=== PATIENT | male | born 1965 | race Caucasian/White ===

== ENCOUNTER 2019-10-31 02:19 | Inpatient (IN) | payer MEDICARE, SELFPAY ==
[2019-10-31] VITALS (9 sets, daily range): BP systolic 116–155; BP diastolic 74–94; PULSE 70–93; RESP 17–22; TEMP 36.5–37.4; O2SAT 91–95; BMI 32.5
--- NOTE | 2019-10-31 02:25 | P.HP_ITS ---
Providers/Chief Complaint Primary Care Provider: Darryl Headley Chief Complaint: direct admit/ acute diverticulitits History of Present Illness Juanjose Barboza is a 54 year old male who carries history of precancerous polyp removal, prior episode diverticulitis, family history of colon cancer came in for worsening down pain. Patient is stating that his symptoms started about 3 to 4 days ago with abdominal pain, his abdominal pain was located in the left upper quadrant which radiated towards lower quadrant, he started experiencing emesis, he has had 7-8 episodes of emesis, he is endorsing subjective fevers, nausea, worsening abdominal pain made him go to the [facility]. Diagnostic at the facility revealed sepsis, CT abdomen revealed acute diverticulitis with microperforation, Dr. Abraham was called from the hospital who requested patient to be admitted to hospitalist service. On arrival to the ED patient was hypertensive, afebrile, cold and diaphoretic which he is attributing to fentanyl which was given in the ambulance. I have requested ER nurse to check blood sugar, POC, blood work and notes reviewed from the other facility which are consistent with sepsis due to acute diverticulitis, mild leukocytosis, tachycardia, met sepsis criteria Ciprofloxacin Flagyl has been given at the outside facility, fluid resuscitation Patient is denying recent use of antibiotics, blood in stool, cough, chest pain, palpitation, recent sick contacts. His last meal was on Saturday. Review of Systems Const: Reports: chills, body aches, fatigue and diaphoresis; Denies: fever(s) Eyes: Denies: change in vision ENMT: Denies: throat pain Card: Denies: chest pain Resp: Denies: dyspnea GI: Reports: abdominal pain, nausea, vomiting and constipation : Denies: flank pain Musc: Denies: neck pain Skin/Breast: Denies: rash Neuro: Denies: headache(s) Psych: Denies: anxiety Endo: Denies: polyuria Mingo/Lymph: Denies: easy bruising All/Imm: Denies: urticaria Medications/Allergies Home Medications Medication Instructions Recorded Confirmed Last Taken Type amlodipine 10 mg tablet 10 mg PO ONCE 03/06/19 03/06/19 Unknown History metoprolol succinate 50 mg 50 mg PO DAILY #30 tab 10/14/19 10/14/19 Unknown Rx tablet,extended release 24 hr tizanidine 2 mg tablet 4 mg PO Q8H PRN #60 tab 10/14/19 10/14/19 Unknown Rx Allergies Allergy/AdvReac Type Severity Reaction Status Date / Time Penicillins Allergy Deathly Verified 10/14/19 13:34 Sick potassium Allergy Shock Verified 10/14/19 13:34 tramadol Allergy itching Verified 10/14/19 13:34 PFSH Acute PFSH: Medical History Abnormal colonoscopy Constipation Encounter for colonoscopy following colon polyp removal Precancerous 7 polyp removal GERD (gastroesophageal reflux disease) H/O coronary angiogram Hiatal hernia HTN (hypertension) Nephrolithiasis Osteoarthritis Pulmonary embolism Provoked PE after hospitalization for lithotripsy Surgical History H/O esophagogastroduodenoscopy H/O lithotripsy History of lithotripsy Family History Father Cancer Colon cancer in his father paternal aunt, paternal aunt, mother and brother are healthy Social History Smoking and tobacco status: heavy tobacco smoker smokeless tobacco Smokeless tobacco user: chewing tobacco Smokeless tobacco details: 2 cans a day Alcohol intake: never Lives independently: No Household members: spouse Marital status: Current gender identity: Male Physical Exam Narrative: EXAM NARRATIVE: Very pleasant middle-age male Currently cold and diaphoretic Checking POC glucose Hypertensive, pulse in 90s, sinus rhythm, afebrile S1, S2 no tachycardia heart failure Lungs are clear to auscultation Neurological nonfocal exam EOMI, PERRLA No lower extremity edema gangrene ulcer Abdomen distended, tenderness in left lower quadrant on superficial deep palpation, rest of the abdomen is soft, bowel sounds sluggish Appropriate mood and affect A&P Assessment and plan (1) Sepsis: Status: Acute (2) Acute diverticulitis of intestine: Status: Acute (3) Colon perforation: Status: Acute Additional A&P Information Sepsis secondary to acute diverticulitis with microperforation Considering penicillin allergy I would use ceftriaxone and metronidazole for now Sepsis criteria met with tachycardia, leukocytosis evident on investigation done at the outside facility Requested blood culture N.p.o. Fluid resuscitation Analgesia involved Dr. Abraham consulted Patient is endorsing family history of colon cancer and recurrent diverticulitis, history of precancerous polyp removal, denying blood in stool, concern for worsening of sepsis with colon perforation Hypertension: Holding p.o. meds at this point Would use hydralazine on as needed basis DVT prophylaxis SCDs in case he requires any surgical intervention N.p.o. Full code Attestations Medical Necessity Statement*: Septic secondary to acute diverticulitis needing IV antibiotics and fluids, anticipating stay in the hospital course more than 2 midnights Time Spent in Patient Care: (>than 50% of time spent in counselling and/or direct pt care on unit) . 45mins Coding Level of Care Code Acute Golf Shoe Spike Assembler for Saira Carpio Diagnoses Sepsis A41.9 Acute diverticulitis of intestine K57.92 Colon perforation K63.1
--- NOTE | 2019-10-31 02:37 | W.ED.ABDPA2 ---
HPI - Abdominal Pain General: Chief Complaint: Abdominal Pain Stated Complaint: direct admit/ acute diverticulitits Time Seen by Provider: 10/31/19 02:23 History of Present Illness: HPI narrative: 54-year-old male presents as a transfer from [facility] in [facility]. He says he has had pain to the left side of his belly since Saturday or so. CT scan at that facility showed diverticulitis with a microperforation. He notes that his pain is controlled at this point. He has not had any vomiting. He is been nauseated. He has had no known exposure to any COVID patients. Associated Symptoms: Reports nausea; Denies chills, fever(s), hematuria and vomiting Review of Systems Const: Denies: fever(s) or chills ENMT: Denies: swelling of lips/tongue, bleeding gums or sinus pain Card: Denies: chest pain, palpitations or irregular heart rhythm Resp: Denies: dyspnea or wheezing GI: Reports: abdominal pain and nausea; Denies: vomiting or rectal pain : Denies: difficulty urinating or hematuria Musc: Denies: neck pain or joint redness Skin/Breast: Denies: rash or erythema Neuro: Denies: headache(s), dizziness or vertigo Psych: Denies: anxiety PFSH ED PFSH: Medical History Abnormal colonoscopy Constipation Encounter for colonoscopy following colon polyp removal Precancerous 7 polyp removal GERD (gastroesophageal reflux disease) H/O coronary angiogram Hiatal hernia HTN (hypertension) Nephrolithiasis Osteoarthritis Pulmonary embolism Provoked PE after hospitalization for lithotripsy Surgical History H/O esophagogastroduodenoscopy H/O lithotripsy History of lithotripsy Family History Father Cancer Colon cancer in his father paternal aunt, paternal aunt, mother and brother are healthy Social History Smoking and tobacco status: heavy tobacco smoker smokeless tobacco Smokeless tobacco user: chewing tobacco Smokeless tobacco details: 2 cans a day Alcohol intake: never Lives independently: No Household members: spouse Marital status: Current gender identity: Male Physical Exam Const: GENERAL APPEARANCE: well developed ORIENTATION/CONSCIOUSNESS: Yes oriented to person, Yes oriented to place and Yes oriented to time HENMT: COMMON NORMALS: normocephalic, external ears normal and Normal external nose present HEAD & SCALP: normocephalic FACE & SINUS: normal facial exam NOSE: Normal external nose present and No nasal discharge present EXTERNAL EAR: Yes external ears normal Eye: COMMON NORMALS: Equal, round and reactive pupils present, EOMs intact bilaterally and conjunctivae normal EYELID: eyelids normal CONJUNCTIVA: Yes conjunctivae normal PUPIL: Yes Equal, round and reactive pupils present Neck/C-Spine: GENERAL: No tracheal deviation Chest: COMMONS NORMALS: normal inspection of the chest CHEST: No tenderness Resp: COMMON NORMALS: clear to auscultation bilaterally EFFORT & INSPECTION: No tachypneic, No respiratory distress, No retractions, No uses accessory muscles and No tracheal deviation AUSCULTATION: clear to auscultation bilaterally, no rhonchi, no wheezes and lung sounds not diminished Cardio: COMMON NORMALS: regular rate and regular rhythm RATE: regular rate RHYTHM: regular rhythm HEART SOUNDS: no murmurs PERIPHERAL PULSES: radial pulses present GI: INSPECTION: No abdominal distension AUSCULTATION: No Hyperactive bowel sounds present and No Hypoactive bowel sounds present PALPATION: Yes Tenderness to palpation present (GI) Details: LLQ, Yes Guarding due to palpation present (GI) and No Rigid due to palpation Neuro: SENSORIUM/ORIENTATION: Yes oriented to person, Yes oriented to place and Yes oriented to time Psych: COMMON NORMALS: mental status grossly normal Skin: COMMON NORMALS: no rashes or lesions noted GENERAL SKIN EXAM: no rashes or lesions noted Course Vital Signs: Vital signs: Vital Signs Temperature 98.0 F 10/31/19 03:40 Pulse Rate 93 10/31/19 03:40 Respiratory Rate 18 10/31/19 03:40 Blood Pressure 153/92 10/31/19 03:40 Pulse Oximetry 94 10/31/19 03:40 MDM - Abdominal Pain MDM Narrative: Medical decision making narrative: Labs have been done at the outside facility. Hospitalist knows the patient's in the ER, and will see down here. Discharge Plan Discharge Admit Provider: Víctor,Block Discharge Date/Time: 10/31/19 03:40 Coding Level of Care Code ED Licensed Bondsman for Chg Fwd Exam Comprehensive
[2019-10-31 02:46] LABS: Glucose Point of Care 153 mg/dL (70-110)
--- NOTE | 2019-10-31 03:18 | PC.NURSE ---
Report called and given to Judy ORELLANA on Med-surg floor.
--- NOTE | 2019-10-31 03:45 | PC.NURSE ---
ADMIT NOTE Pt received to room from ER via wheelchair at 0335. Alert and oriented. Reports is feeling some better. c/o low medial abd pain/tenderness but says is much better. Rates pain at a 3 Reports pain started 3-4 days ago and just became worse. Says history of diverticulitis and these same symptoms. Had some vomiting on but none since. Some nausea after received Dilaudid at [facility]. Instructed on I&O and NPO status. VS check done and RN at bedside for admission assessment. Denies chills but reports low grade fever at [facility]
[2019-10-31] MEDS: dextrose 5%-sod chloride 0.45% 1,000 ML 75 ML IV ×2 (04:11→21:25)
[2019-10-31 04:29] LABS: Basophils # 0.1 10^3/uL (0.0-0.1); Basophils % 0.3 %; Hematocrit 47.5 % (42.0-52.0); Hemoglobin 15.8 g/dL (11.7-16.6); Lymphocytes # 0.7 10^3/uL (0.8-4.8); Mean Corpuscular HGB Conc 33.3 g/dL (30.0-36.0); Mean Corpuscular Hemoglobin 30.3 pg (28.0-34.0); Mean Corpuscular Volume 91.2 fL (80-94); Mean Platelet Volume 10.8 fL (7.4-10.4); Monocytes # 1.2 10^3/uL (0.2-0.9); Monocytes % 7.4 %; Neutrophils # 14.49 10^3/uL (1.8-7.7); Neutrophils % 87.7 %; Nucleated Red Blood Cells % 0 %; Platelet Count 212 10^3/cmm (130-400); Red Blood Count 5.21 10^6/uL (4.1-5.3); Red Cell Distribution Width 12.7 % (12.1-15.1); White Blood Count 16.5 10^3/uL (4.0-10.0)
[2019-10-31 04:54] LABS: Anion Gap 13.2 (5-19); Blood Urea Nitrogen 8 mg/dL (6-20); Carbon Dioxide 26 mmol/L (22-29); Chloride 101 mmol/L (98-107); Glucose 149 mg/dL (65-115); Osmolality Calculated 281 mOsm/kg (285-295); Potassium 4.2 mmol/L (3.5-5.1); Sodium 136 mmol/L (136-145)
[2019-10-31] MEDS: metroNIDAZOLE IV 500 MG/100 ML PREMIX 100 MG IV ×4 (05:39→21:23)
--- NOTE | 2019-10-31 06:34 | PM.CONSULT ---
Providers/Reason For Consult Consulting Physican/Specialty*: Grzegorz Abraham MD Reason for Consult*: Complicated sigmoid colon diverticulitis Attending Physician: Umair Renee MD Primary Care Provider: DAKOTAH Lipscomb History of Present Illness History of Present Illness Chief Complaint: Abdominal pain History of present illness:Mr Juanjose Barboza is a 54 year old male presents with history of abdominal pain, patient went to [facility] and undergone work-up in the form of lab work that showed WBC count of 15.7, hematocrit of 47.6 and platelets of 234, and creatinine of 0.9. Normal liver function tests. Patient undergone a CT scan of the abdomen and pelvis with contrast that showed acute diverticulitis of the sigmoid colon with prominent pericolonic inflammation. There is a small amount of extraluminal gas appeared to the colon within the area of inflammation consistent with a small contained perforation. There is no free pneumoperitoneum. No evidence of bowel obstruction or abscess. Pain reported to start 3 days ago but has been getting worse, patient reports that he had history of colon cancer in the family and he had himself colon polyps removed before and his last colonoscopy was several years ago. Patient reports no change in bowel habits and had a bowel movement about couple of days ago. Patient gives history of pulmonary embolism and had anticoagulation at that time. General surgery was consulted for further evaluation Review of Systems General: Reports: 10 or more systems reviewed and unremarkable except in HPI and below Meds/Allergies Home Medications and Allergies Home Medications Medication Instructions Recorded Confirmed Last Taken Type metoprolol tartrate 50 mg PO BID 10/31/19 10/31/19 Unknown History Allergies Allergy/AdvReac Type Severity Reaction Status Date / Time Penicillins Allergy Deathly Verified 10/14/19 13:34 Sick potassium Allergy Shock Verified 10/14/19 13:34 tramadol Allergy itching Verified 10/14/19 13:34 Current Medications Current Medications Generic Name Dose Route Start Last Admin Trade Name Freq PRN Reason Stop Dose Admin Metronidazole 500 mg in 100 mls @ 100 mls/hr 10/31/19 05:00 10/31/19 05:39 Flagyl Iv IV 100 mls/hr Q8H AZRA Administration Protocol Dextrose/Sodium Chloride 1,000 mls @ 75 mls/hr 10/31/19 03:34 10/31/19 04:11 Dextrose 5%-Sod Chloride 0.45% IV 75 mls/hr .[id number] AZRA Administration PFSH Acute PFSH: Medical History Abnormal colonoscopy Constipation Encounter for colonoscopy following colon polyp removal Precancerous 7 polyp removal GERD (gastroesophageal reflux disease) H/O coronary angiogram Hiatal hernia HTN (hypertension) Nephrolithiasis Osteoarthritis Pulmonary embolism Provoked PE after hospitalization for lithotripsy Surgical History H/O esophagogastroduodenoscopy H/O lithotripsy History of lithotripsy Family History Father Cancer Colon cancer in his father paternal aunt, paternal aunt, mother and brother are healthy Social History Smoking and tobacco status: heavy tobacco smoker smokeless tobacco Smokeless tobacco user: chewing tobacco Smokeless tobacco details: 2 cans a day Alcohol intake: never Lives independently: No Household members: spouse Marital status: Current gender identity: Male Vitals/I&O/Wt Last Vital Signs Temp 98.5 F 10/31/19 04:00 Pulse 90 10/31/19 04:00 Resp 20 H 10/31/19 04:00 BP 155/93 10/31/19 04:00 Pulse Ox 94 10/31/19 04:00 Weight last 48 hrs Weight 233 lb Physical Exam Narrative: EXAM NARRATIVE: Patient is conscious alert oriented X3 BMI 32.5 Head and neck examination PERRLA no masses no cervical lymphadenopathy no jaundice Cardiac examination audible S1-S2 no murmurs no gallops no arrhythmias Chest is clear bilateral,abscence of Rhonchi or wheezes,no surgical emphysema Abdomen nontender except at the suprapubic and left lower quadrant nondistended soft no organomegaly guarding or rigidity/no signs of peritonitis Obese Extremities no cyanosis no clubbing no edema Data Micro: Micro: Microbiology 10/31/19 04:16 Blood Culture - Pr eliminary Blood SPECIMEN CAMRYN ROONEY 10/31/19 04:14 Blood Culture - Pr eliminary Blood SPECIMEN [facility] A&P Assessment and plan (1) Acute diverticulitis of intestine: After thorough history physical examination reviewing the chart and with my personal interpretation of the CT scan from the outside facility,my recommendation at this point to continue IV antimicrobial in the form of Cipro and Flagyl therapy and perform repeated physical examination. I did request the CD of the CT scan done outside hospital to be loaded on our system for review and future comparison No acute surgical intervention at this point Recommend highly to obtain a colonoscopy in 6 to 8 weeks after subsidence of this episode Weight management Repeat blood work for normalization of WBC count once this take place patient can be started on clear liquid diet in addition to correlate with the clinical picture. Pharmacologic DVT prophylaxis Assurance and education All questions have been answered and all concerns have been addressed to patient's satisfaction. Thank you for consulting general surgery to participate taking care Status: Acute Consult Attestations Medical Necessity Statement: Per hospitalist service Time Spent in Patient Care: (>than 50% of time spent in counselling and/or direct pt care on unit). Coding Level of Care Code Acute Necktie Maker for Saira Carpio Diagnoses Acute diverticulitis of intestine K57.92
[2019-10-31] MEDS: acetaminophen 325 mg Tablet 650 MG PO ×2 (07:52→17:57)
[2019-10-31] MEDS: cefTRIAXone 1,000 MG in sodium chloride 0.9% (plus) 50 ML 100 MG IV (09:01)
--- NOTE | 2019-10-31 09:41 | PC.NURSE ---
Pt off the unit for a HIDA scan.
--- NOTE | 2019-10-31 15:34 | PC.CHAP ---
Pastoral Care Encounter/Spiritual Assessment Type of Contact [] Declined elementary substitute teacher visit [] Patient/Family/Request visit [] Outpatient visit [] Follow-up visit [] Physician referral [] Code/Alert [X] Routine visit [] Staff referral [] Actively dying [] Patient sleeping [] Family support [] [] Out of room [] Palliative care [] [] Receiving care in room [] Pre-surgical visit [] Trauma [] Long length of stay [] ICU visit [] Other: Relational/Emotional Strength [X] Patient feels connected with others/family/visitors/staff [] Distress [] Loneliness/isolation [] Abandonment Spirituality of Patient [X] Person of Kayy [] Attends Pentecostal of their Kayy [X] Believes in Prayer [] Reads Bible or Hoahaoism materials [] There are Spiritual issues to be addressed Nursing Secretary Interventions [] Prayer [X] Active listening [] Non-anxious presence [] Spiritual/emotional support [] Crisis/trauma care [] Spiritual counseling [] Bereavement support [] Provided bereavement packet [] Provided Bible/devotional materials [] Provided toy/stuffed animal, coloring book to patient or family member [] Provided Communion [] Anointing/[place] [] Salvation [X] Completed spiritual assessment [] Other: Impact on Illness or Injury [] Angry [] Fearful [] Anxious [] Often cries [] Exhaustion [] Unable to work [] Unable to attend lutheran [] Unable to walk/stand [] Unable to read [] Unable to drive [] Unable to eat/drink [] Unable to sleep [] Unable to be with family [] Patient intubated [] Other: Summary: Pt was content and grateful that perforation was discovered. He has a road ahead of him with IV antibiotics for several weeks, but he is hoping that he won't have to have surgery. His was coming for a visit. He stated that he talks to God and for me to keep him in prayer. I will be back to visit more with him tomorrow morning. He was content. Time spent with patient: 5 - 10 mins
--- NOTE | 2019-10-31 16:28 | P.PN_ITS ---
Subjective Subjective: Interval history: T-max at 99.3. Hemodynamically stable. Complains of soreness generalized over her abdomen. Evaluated by surgery, no acute surgical intervention indicated. He is beginning to have an appetite and wishes to eat. Awaiting normalization of his white blood cell count prior to resuming p.o. diet. Medications: Reviewed: Yes Vitals/I&O/Wt Last Vital Signs Temp 99.3 F 10/31/19 15:43 Pulse 83 10/31/19 15:43 Resp 18 10/31/19 15:43 BP 149/83 10/31/19 15:43 Pulse Ox 94 10/31/19 15:43 10/31/19 10/31/19 10/31/19 06:59 14:59 22:59 Intake Total 200 / 200 Output Total 200 / 200 400 / 400 Balance -200 / -200 -200 / -200 Weight last 48 hrs Weight 105.687 kg Physical Exam Narrative: EXAM NARRATIVE: GEN: Awake, alert and oriented, no acute distress CVS: S1S2 N RS: CTA B/L Abd: Soft, non distended, mildly tender, BS+ COREMAKER EXPERIMENTAL: no focal neuro deficits Data : 10/31/19 04:16 10/31/19 04:16 Micro: Microbiology 10/31/19 04:16 Blood Culture - Preliminary Blood SPECIMEN COLLECTED 10/31/19 04:14 Blood Culture - Preliminary Blood SPECIMEN COLLECTED CT Abd/Pel: Radiologist's impression: From OSH: Acute diverticulitis of the sigmoid colon with prominent pericolonic inflammation. There is a small amount of extraluminal gas appeared to the colon within the area of inflammation consistent with a small contained perforation. There is no free pneumoperitoneu m. No evidence of bowel obstruction or abscess. A&P Assessment and plan (1) Sepsis: Status: Acute (2) Acute diverticulitis of intestine: Status: Acute (3) Colon perforation: Status: Acute Additional A&P Information Sepsis secondary to acute diverticulitis with microperforation Continue ceftriaxone and metronidazole for now Sepsis criteria met with tachycardia, leukocytosis evident on investigation done at the outside facility NGTD on blood culture Continue d5NS @75 cc/hr Dr. Abraham consulted, appreciate recommendations Patient is endorsing family history of colon cancer and recurrent diverticulitis, history of precancerous polyp removal, denying blood in stool Hypertension: Resume po metoprolol prn hydralazine for SBP >160 DVT prophylaxis SCDs in case he requires any surgical intervention start clear diet, has an appetite today Full code Attestations Medical Necessity Statement*: perforated diverticulitis Coding Level of Care Code Acute Home Sales Service Professional for [facility] F[facility] Diagnoses Sepsis A41.9 Acute diverticulitis of intestine K57.92 Colon perforation K63.1
[2019-10-31] MEDS: ondansetron 2 mg/ML SDV 2 mL 4 MG IVP (17:55)
[2019-10-31] MEDS: metoprolol tartrate 50 mg Tablet PO (17:57)
[2019-11-01 03:00] VITALS: BP 146/87; PULSE 77; RESP 18; TEMP 36.8; O2SAT 95
[2019-11-01] MEDS: acetaminophen 325 mg Tablet 650 MG PO ×2 (04:44→19:19)
[2019-11-01 04:58] LABS: Basophils % 0.2 %; Eosinophils # 0.1 10^3/uL (0.0-0.8); Eosinophils % 0.7 %; Hematocrit 42.8 % (42.0-52.0); Hemoglobin 14.2 g/dL (11.7-16.6); Lymphocytes # 1.5 10^3/uL (0.8-4.8); Lymphocytes % 12.4 %; Mean Corpuscular HGB Conc 33.2 g/dL (30.0-36.0); Mean Corpuscular Hemoglobin 30.8 pg (28.0-34.0); Mean Corpuscular Volume 92.8 fL (80-94); Monocytes # 1.1 10^3/uL (0.2-0.9); Monocytes % 8.9 %; Neutrophils # 9.41 10^3/uL (1.8-7.7); Neutrophils % 77.2 %; Nucleated Red Blood Cells % 0 %; Platelet Count 186 10^3/cmm (130-400); Red Blood Count 4.61 10^6/uL (4.1-5.3); Red Cell Distribution Width 12.9 % (12.1-15.1); White Blood Count 12.2 10^3/uL (4.0-10.0)
--- NOTE | 2019-11-01 05:20 | PC.NURSE ---
SHIFT SUMMARY Has rested well tonight. Medicated X1 with po Tylenol this am for headache. Abd soft with some tenderness across lower abdomen but as required no pain med for this. Has denied nausea. Rhonda clear liquids well.
[2019-11-01 05:22] LABS: Alanine Aminotransferase 11 U/L (0-41); Albumin Level 3.5 g/dL (3.5-5.2); Alkaline Phosphatase 88 IU/L (40-130); Anion Gap 11.7 (5-19); Aspartate Amino Transferase 14 U/L (0-40); Blood Urea Nitrogen 9 mg/dL (6-20); Calcium 8.9 mg/dL (8.5-10.5); Carbon Dioxide 26 mmol/L (22-29); Chloride 100 mmol/L (98-107); Glomerular Filtration Rate 87.3 mL/min (90-130); Glucose 130 mg/dL (65-115); Osmolality Calculated 276 mOsm/kg (285-295); Potassium 3.7 mmol/L (3.5-5.1); Sodium 134 mmol/L (136-145); Total Bilirubin 0.6 mg/dL (0.15-1.2); Total Protein 6.5 g/dL (6.6-8.7)
[2019-11-01] MEDS: metroNIDAZOLE IV 500 MG/100 ML PREMIX 100 MG IV ×3 (06:00→21:17)
[2019-11-01 07:00] VITALS: BP 112/63; PULSE 75; RESP 18; TEMP 36.8; O2SAT 96
--- NOTE | 2019-11-01 07:37 | PM.PN ---
Subjective Subjective: Interval history: No acute events overnight Patient is tolerating well p.o. intake and feels much better Trending down and leukocytosis Vitals/I&O/Wt Last Vital Signs Temp 98.3 F 11/01/19 03:00 Pulse 77 11/01/19 03:00 Resp 18 11/01/19 03:00 BP 146/87 11/01/19 03:00 Pulse Ox 95 11/01/19 03:00 10/31/19 11/01/19 11/01/19 22:59 06:59 14:59 Intake Total 1460 / 1760 120 / 1880 Output Total 250 / 650 Balance 1460 / 1360 -130 / 1230 Weight last 48 hrs Weight 233 lb Physical Exam Narrative: EXAM NARRATIVE: Patient is conscious alert oriented X3 BMI 32.5 Head and neck examination PERRLA no masses no cervical lymphadenopathy no jaundice Abdomen nontender nondistended soft no organomegaly guarding or rigidity/no signs of peritonitis Obese Extremities no cyanosis no clubbing no edema Data : 11/01/19 04:11 11/01/19 04:11 Micro: Microbiology 10/31/19 04:16 Blood Culture - Preliminary Blood NEGATIVE TO DATE 10/31/19 04:14 Blood Culture - Preliminary Blood NEGATIVE TO DATE A&P Assessment and plan (1) Acute diverticulitis of intestine: Patient seems to be responding well to conservative measures and will advance to full liquid diet From surgical standpoint of view patient would benefit from antibiotics for 10 to 14 days after discharge with the plan to follow-up with me at the office in 2 weeks to plan for elective colonoscopy in 6 to 8-week Assurance and education All questions have been answered and all concerns have been addressed to patient's satisfaction. Status: Acute (2) Diverticulosis: Plan of care; Review the pathology with the patient Return to primary care provider Avoid constipation Avoid seeds nuts and popcorn High Fiber diet; As Fiber softens the stool and helps prevent constipation. It also can help decrease pressure in the colon and help prevent flare-ups of diverticulitis. High-fiber foods include: ? Beans and legumes ? Bran, whole wheat bread and whole grain cereals such as oatmeal ? Brown and wild rice ? Fruits such as apples, bananas and pears ? Vegetables such as broccoli, carrots, corn and squash ? Whole wheat pasta The target is to eat 25 to 30 grams of fiber daily. Drink at least 8 cups of fluid daily. Fluid will help soften your stool.Exercise also promotes bowel movement and helps prevent constipation. Weight management Assurance and education All questions have been answered Status: Chronic Attestations Medical Necessity Statement*: Observation status Time Spent in Patient Care: (>than 50% of time spent in counselling and/or direct pt care on unit). Coding Level of Care Code Acute Sales Relationship Manager for Saira Fwd Diagnoses Acute diverticulitis of intestine K57.92 Diverticulosis K57.90
[2019-11-01] MEDS: cefTRIAXone 1,000 MG in sodium chloride 0.9% (plus) 50 ML 100 MG IV (08:30)
[2019-11-01 11:00] VITALS: BP 126/79; PULSE 76; RESP 18; TEMP 37.1; O2SAT 94
[2019-11-01] MEDS: dextrose 5%-sod chloride 0.45% 1,000 ML 75 ML IV (14:01)
[2019-11-01 15:00] VITALS: BP 123/80; PULSE 78; RESP 18; TEMP 36.9; O2SAT 95
--- NOTE | 2019-11-01 16:50 | P.PN_ITS ---
Subjective Subjective: Interval history: feels symptomatically improved today, tolerating po intake with clears, no BM yet, not passing gas freely thus far. leukocytosis improving, afberile. C/o headache [facility] admission, states this is unusual, partially improved with tylenol Medications: Reviewed: Yes Vitals/I&O/Wt Last Vital Signs Temp 98.5 F 11/01/19 15:00 Pulse 78 11/01/19 15:00 Resp 18 11/01/19 15:00 BP 123/80 11/01/19 15:00 Pulse Ox 95 11/01/19 15:00 11/01/19 11/01/19 11/01/19 06:59 14:59 22:59 Intake Total 120 / 1930 2180 / 2180 Output Total 250 / 650 Balance -130 / 1280 2180 / 2180 Weight last 48 hrs Weight 105.687 kg Physical Exam Narrative: EXAM NARRATIVE: GEN: Awake, alert and oriented, no acute distress CVS: S1S2 N RS: CTA B/L Abd: Soft, nt/nd , bs+ INDUSTRIAL REGISTERED NURSE: no focal neuro deficits Data : 11/01/19 04:11 11/01/19 04:11 Micro: Microbiology 10/31/19 04:16 Blood Culture - Preliminary Blood NEGATIVE TO DATE 10/31/19 04:14 Blood Culture - Preliminary Blood NEGATIVE TO DATE A&P Assessment and plan (1) Sepsis: Status: Acute (2) Acute diverticulitis of intestine: Status: Acute (3) Colon perforation: Status: Acute Additional A&P Information #Sepsis secondary to acute diverticulitis with microperforation Continue ceftriaxone and metronidazole for now Improving today, reports improvement in pain, returning appetite, tolerating clears. No BM yet. NGTD on blood culture Continue d5NS @75 cc/hr Dr. Abraham consulted, appreciate recommendations Patient is endorsing family history of colon cancer and recurrent diverticulitis, history of precancerous polyp removal, denying blood in stool, will need interval colonoscopy If continues to do well in the next 24-48 hrs, likely discharge on po ciprofl oxacin 500mg BID and po metronidazole 500mg TID for [address] when completing course to follow up on improvement. If develops worsening pain, fever, leukocytosis at any point, will likely need iv abx treatment. #Hypertension: Resumed po metoprolol prn hydralazine for SBP >160 # c/o headache today, states this is unusual for him to be severe headache. Will check CT head to r/o SAH DVT prophylaxis : start lovenox if Ct head negative on clears Full code Attestations Medical Necessity Statement*: Divertculitis with perfortaion, improving , Ct head for headache Coding Level of Care Code Acute Foundation Director for Chg Fwd Diagnoses Sepsis A41.9 Acute diverticulitis of intestine K57.92 Colon perforation K63.1
[2019-11-01] MEDS: metoprolol tartrate 50 mg Tablet PO (17:03)
--- NOTE | 2019-11-01 17:03 | CTR_ITS ---
PROCEDURE INFORMATION: Exam: CT Head Without Contrast Exam date and time: 11/01/2019 5:15 PM Age: 54 years old Clinical indication: Pain; Headache not specified; Patient HX: C/O chronic intermittent occipital VILLAREAL; Additional info: Headache, evalute sah TECHNIQUE: Imaging protocol: Computed tomography of the head without contrast. Radiation optimization: All CT scans at this facility use at least one of these dose optimization techniques: automated exposure control; mA and/or kV adjustment per patient size (includes targeted exams where dose is matched to clinical indication); or iterative reconstruction. COMPARISON: No relevant prior studies available. RADIATION DOSE METRICS: Total DLP (mGy-cm): 840.37 FINDINGS: Brain: Mild white matter chronic microvascular changes are noted. No hemorrhage or CT evidence of acute infarction is seen. Ventricles: Normal. No ventriculomegaly. Bones/joints: Unremarkable. No acute fracture. Sinuses: Visualized sinuses are unremarkable. No fluid levels. Mastoid air cells: Visualized mastoid air cells are well aerated. Soft tissues: Unremarkable. CT/CT head wo con* 12511 IMPRESSION: No acute intracranial abnormality. Radiation Dose CTDIVOL = (mGy): DLP = 840.37 (mGy-cm)
[2019-11-01 19:00] VITALS: BP 132/84; PULSE 75; RESP 20; TEMP 36.6; O2SAT 96
[2019-11-01 23:00] VITALS: BP 143/90; PULSE 68; RESP 18; TEMP 36.7; O2SAT 93
[2019-11-02 03:00] VITALS: BP 123/80; PULSE 66; RESP 20; TEMP 36.3; O2SAT 93
[2019-11-02] MEDS: dextrose 5%-sod chloride 0.45% 1,000 ML 75 ML IV (05:41)
[2019-11-02] MEDS: metroNIDAZOLE IV 500 MG/100 ML PREMIX 100 MG IV (05:42)
--- NOTE | 2019-11-02 06:22 | PM.PN ---
Subjective Subjective: Interval history: Overall patient is feeling better and have 3 bowel movements and passing gas Awaiting CBC for today which through the day came back and has been normalized Vitals/I&O/Wt Last Vital Signs Temp 97.3 F L 11/02/19 03:00 Pulse 66 11/02/19 03:00 Resp 20 H 11/02/19 03:00 BP 123/80 11/02/19 03:00 Pulse Ox 93 11/02/19 03:00 11/01/19 11/01/19 11/02/19 14:59 22:59 06:59 Intake Total 2230 / 2230 1300 / 3530 1100 / 4630 Output Total 200 / 200 800 / 1000 Balance 2230 / 2230 1100 / 3330 300 / 3630 Physical Exam Narrative: EXAM NARRATIVE: Patient is conscious alert oriented X3 BMI 32.5 Head and neck examination PERRLA no masses no cervical lymphadenopathy no jaundice Abdomen nontender nondistended soft no organomegaly guarding or rigidity/no signs of peritonitis Obese Extremities no cyanosis no clubbing no edema Data : 11/02/19 09:24 11/02/19 09:24 Micro: Microbiology 10/31/19 04:16 Blood Culture - Preliminary Blood NEGATIVE TO DATE 10/31/19 04:14 Blood Culture - Preliminary Blood NEGATIVE TO DATE A&P Assessment and plan (1) Acute diverticulitis of intestine: Advance diet as tolerated including high-fiber diet From surgical standpoint of view patient would benefit from antibiotics for 10 to 14 days after discharge with the plan to follow-up with me at the office in 2 weeks to plan for elective colonoscopy in 6 to 8-week Assurance and education All questions have been answered and all concerns have been addressed to patient's satisfaction. Status: Acute (2) Diverticulosis: Plan of care; Review the pathology with the patient Return to primary care provider Avoid constipation Avoid seeds nuts and popcorn High Fiber diet; As Fiber softens the stool and helps prevent constipation. It also can help decrease pressure in the colon and help prevent flare-ups of diverticulitis. High-fiber foods include: ? Beans and legumes ? Bran, whole wheat bread and whole grain cereals such as oatmeal ? Brown and wild rice ? Fruits such as apples, bananas and pears ? Vegetables such as broccoli, carrots, corn and squash ? Whole wheat pasta The target is to eat 25 to 30 grams of fiber daily. Drink at least 8 cups of fluid daily. Fluid will help soften your stool.Exercise also promotes bowel movement and helps prevent constipation. Weight management Assurance and education All questions have been answered Status: Chronic Attestations Medical Necessity Statement*: Per hospitalist service Time Spent in Patient Care: (>than 50% of time spent in counselling and/or direct pt care on unit). Coding Level of Care Code Acute Kinesiologist for Saira Carpio Diagnoses Acute diverticulitis of intestine K57.92 Diverticulosis K57.90
[2019-11-02 07:00] VITALS: BP 131/81; PULSE 73; RESP 18; TEMP 37; O2SAT 93
[2019-11-02] MEDS: cefTRIAXone 1,000 MG in sodium chloride 0.9% (plus) 50 ML 100 MG IV (09:13)
[2019-11-02 10:03] LABS: Basophils % 0.4 %; Eosinophils # 0.1 10^3/uL (0.0-0.8); Eosinophils % 0.8 %; Hematocrit 44.7 % (42.0-52.0); Hemoglobin 14.7 g/dL (11.7-16.6); Lymphocytes # 1.1 10^3/uL (0.8-4.8); Lymphocytes % 11.9 %; Mean Corpuscular HGB Conc 32.9 g/dL (30.0-36.0); Mean Corpuscular Hemoglobin 30.4 pg (28.0-34.0); Mean Corpuscular Volume 92.5 fL (80-94); Mean Platelet Volume 10.6 fL (7.4-10.4); Monocytes # 0.7 10^3/uL (0.2-0.9); Monocytes % 7.5 %; Neutrophils # 7.52 10^3/uL (1.8-7.7); Neutrophils % 78.8 %; Nucleated Red Blood Cells % 0 %; Platelet Count 249 10^3/cmm (130-400); Red Blood Count 4.83 10^6/uL (4.1-5.3); Red Cell Distribution Width 12.9 % (12.1-15.1); White Blood Count 9.6 10^3/uL (4.0-10.0)
[2019-11-02 10:19] LABS: Alanine Aminotransferase 11 U/L (0-41); Albumin Level 3.9 g/dL (3.5-5.2); Alkaline Phosphatase 79 IU/L (40-130); Anion Gap 14.7 (5-19); Aspartate Amino Transferase 13 U/L (0-40); Blood Urea Nitrogen 6 mg/dL (6-20); Calcium 8.8 mg/dL (8.5-10.5); Carbon Dioxide 26 mmol/L (22-29); Chloride 101 mmol/L (98-107); Globulin 3.5 g/dL (1.3-4.6); Glucose 139 mg/dL (65-115); Osmolality Calculated 284 mOsm/kg (285-295); Potassium 3.7 mmol/L (3.5-5.1); Sodium 138 mmol/L (136-145); Total Bilirubin 0.3 mg/dL (0.15-1.2); Total Protein 7.4 g/dL (6.6-8.7)
--- NOTE | 2019-11-02 11:01 | PM.DCS ---
Discharge Providers Date of Admission: 10/31/19 02:27 Date of Discharge: November 02, 2019 Attending Provider at Admission: Umair Renee MD Attending Provider at Discharge: Huey Mccord MD Primary Care Provider: DAKOTAH Lipscomb Diagnoses at Discharge Discharge Diagnosis (1) Acute diverticulitis of intestine: Status: Acute (2) Diverticulosis: Status: Chronic Reason for Visit Reason for Visit: direct admit/ acute diverticulitits Hospital Course Discharge Summary: This is a 54-year-old male with a past medical history of hypertension, diverticulosis, history of diverticulitis in the past, history of precancerous polyps status post removal, who presented [facility] due to complaints of abdominal pain. Patient was admitted to [facility] for sepsis secondary to acute diverticulitis with microperforation, patient was admitted to the general medical floors, received IV fluids, pain control, broad-spectrum antibiotics, surgery was consulted. Patient's medical condition gradually improved, abdominal pain improved, patient had bowel movements had 4 bowel movements and was passing gas just before discharge. Patient was discharged on a total of 2 weeks of Cipro and Flagyl, with outpatient follow-up with Dr. Abraham for consideration of colonoscopy, diet interventions for diverticulitis were discussed with patient, handouts were ordered. Patient was advised to drink plenty of electrolyte balance fluids. Patient was advised that if he were to have worsening abdominal pain come back to the emergency room. Physical Exam Const: COMMON NORMALS: no acute distress and patient oriented x3 HENMT: COMMON NORMALS: normocephalic HEAD & SCALP: normocephalic Neck/C-Spine: COMMON NORMALS: no JVD Resp: COMMON NORMALS: normal respiratory effort, No retractions, No use of accessory muscles and clear to auscultation bilaterally AUSCULTATION: clear to auscultation bilaterally Cardio: COMMON NORMALS: no JVD, regular rate, regular rhythm, S1 normal heart sound present and S2 normal heart sound present RATE: regular rate RHYTHM: regular rhythm HEART SOUNDS: S1 normal heart sound present and S2 normal heart sound present GI: COMMON NORMALS: Normal to inspection, nondistended, normoactive bowel sounds present, Soft to palpation, non-tender, No hepatosplenomegaly present, no masses and no bruits PALPATION: Yes Soft to palpation and Yes No hepatosplenomegaly present Extremity: COMMON NORMALS: capillary refill normal, no clubbing, cyanosis or edema, no calf tenderness and no pedal edema Neuro: COMMON NORMALS: patient oriented x3 Psych: COMMON NORMALS: mental status grossly normal Discharge Data Data Completed and Pending: Completed Studies During Hospitalization Category Date Time Status CT head wo con* 7 0450 Routine Cat Scan 11/01/19 17:03 Completed Pending at discharge Category Date Time Status Blood Culture Sta t Lab 10/31/19 04:16 Results Labs from last 24 hours 11/02/19 11/02/19 09:24 09:24 WBC 9.6 RBC 4.83 Hgb 14.7 Hct 44.7 MCV 92.5 MCH 30.4 MCHC 32.9 RDW 12.9 Plt Count 249 MPV 10.6 H Neut % (Auto) 78.8 Lymph % (Auto) 11.9 [place] % (Auto) 7.5 Eos % (Auto) 0.8 Baso % (Auto) 0.4 Neut # (Auto) 7.52 Lymph # (Auto) 1.1 [place] # (Auto) 0.7 Eos # (Auto) 0.1 Baso # (Auto) 0.0 Nucleated RBC % (a uto) 0 Nucleated RBCs # 0.0 Sodium 138 Potassium 3.7 Chloride 101 Carbon Dioxide 26 Anion Gap 14.7 BUN 6 Creatinine 0.8 GFR Calculation 100.0 Glucose 139 H Calculated Osmolal ity 284 L Calcium 8.8 Total Bilirubin 0.3 AST 13 ALT 11 Alkaline Phosphata se 79 Total Protein 7.4 Albumin 3.9 Globulin 3.5 Vitals: Last Vital Signs Temp 98.6 F 11/02/19 07:00 Pulse 73 11/02/19 07:00 Resp 18 11/02/19 07:00 BP 131/81 11/02/19 07:00 Pulse Ox 93 11/02/19 07:00 Discharge Plan Discharge Patient Disposition: Home Condition: Stable Prescriptions: New Flagyl 500 mg tablet 500 mg PO Q8H 12 Days Qty: 36 RF: 0 ciprofloxacin HCl 500 mg tablet 500 mg PO BID 12 Days Qty: 24 RF: 0 [place] 5-325 mg tablet 1 tab PO Q8H 7 Days Qty: 24 RF: 0 Continued metoprolol tartrate 50 mg PO DAILY RF: 0 Zanaflex 2 mg PO PRN PRN (Reason: Muscle Spasm) RF: 0 Discharge Orders: Discharge Order (Routine); Ordered 11/02/19 Ordered By: Huey Mccord Referrals: Grzegorz Abraham MD [Physician] - (RTC in two weeks at surgery office) Discharge Diet: As Directed Discharge Activity: Resume usual activity Patient Instructions: Ciprofloxacin (By mouth), Hydrocodone/Acetaminophen (By mouth), Metronidazole (By mouth), Diverticulitis (GEN), Diverticulitis Diet (DC), Perforated Bowel (DC) Activity Restrictions/Additional Instructions: Plan of care; Review the pathology with the patient Return to primary care provider Avoid constipation Avoid seeds nuts and popcorn High Fiber diet; As Fiber softens the stool and helps prevent constipation. It also can help decrease pressure in the colon and help prevent flare-ups of diverticulitis. High-fiber foods include: ? Beans and legumes ? Bran, whole wheat bread and whole grain cereals such as oatmeal ? Brown and wild rice ? Fruits such as apples, bananas and pears ? Vegetables such as broccoli, carrots, corn and squash ? Whole wheat pasta The target is to eat 25 to 30 grams of fiber daily. Drink at least 8 cups of fluid daily. Fluid will help soften your stool.Exercise also promotes bowel movement and helps prevent constipation. Weight management Assurance and education All questions have been answered Discharge Attestations Time Spent in Discharge Care*: less than 30 min Quality Metrics Clinical Quality Measures During this hospital stay, did patient experience: None Coding Level of Care Code Acute Patient Registrar for eugene Fwd Diagnoses Acute diverticulitis of intestine K57.92 Diverticulosis K57.90
[2019-11-02 11:48] VITALS: BP 131/81; PULSE 73; RESP 18; TEMP 37; O2SAT 93
--- NOTE | 2019-11-02 15:44 | PC.RESP ---
SMOKING CESSATION INFORMATION SENT TO PATIENT.
== END 2019-11-02 12:20 | disposition skilled nursing facility (03) | DRG 872 ==
LOC: ER 02:53 → MEDSURG 02:56
PROVIDERS: Student in an Organized Health Care Education/Training Program; Admitting Provider Internal Medicine; Emergency Provider Emergency Medicine; PCP Nurse Practitioner Family; Visit Provider Family Medicine
DX: A41.9 Sepsis, unspecified organism (principal); K57.20 Diverticulitis of large intestine with perforation and abscess without bleeding; Z80.0 Family history of malignant neoplasm of digestive organs; K59.00 Constipation, unspecified; Z86.010 Personal history of colon polyps; K21.9 Gastro-esophageal reflux disease without esophagitis; K44.9 Diaphragmatic hernia without obstruction or gangrene; I10 Essential (primary) hypertension; Z87.442 Personal history of urinary calculi; M19.90 Unspecified osteoarthritis, unspecified site; Z86.711 Personal history of pulmonary embolism; F17.220 Nicotine dependence, chewing tobacco, uncomplicated; R51 Headache
CPT/HCPCS: 12345; 36415; 36416; 70450; 80048; 80053; 82962; 85025; 87040; 96375; 99281; J0696; J2405; J7799; S0030

== ENCOUNTER → 2019-11-05 09:40 | Outpatient (BNVA) | payer MEDICARE, SELFPAY | PROVIDERS: PCP Nurse Practitioner Family; Visit Provider Nurse Practitioner Family | DX: K57.92 Diverticulitis of intestine, part unspecified, without perforation or abscess without bleeding (principal) | CPT/HCPCS: 85025 ==

== ENCOUNTER 2019-12-16 14:28 | Outpatient (CLI) | payer MEDICARE, SELFPAY ==
[2019-12-16 14:54] LABS: Basophils # 0.1 10^3/uL (0.0-0.1); Basophils % 0.5 %; Eosinophils % 0.3 %; Hematocrit 47.5 % (42.0-52.0); Hemoglobin 15.6 g/dL (11.7-16.6); Lymphocytes # 1.7 10^3/uL (0.8-4.8); Lymphocytes % 14.3 %; Mean Corpuscular HGB Conc 32.8 g/dL (30.0-36.0); Mean Corpuscular Hemoglobin 29.7 pg (28.0-34.0); Mean Corpuscular Volume 90.5 fL (80-94); Mean Platelet Volume 10.1 fL (7.4-10.4); Monocytes # 1.2 10^3/uL (0.2-0.9); Neutrophils # 8.96 10^3/uL (1.8-7.7); Neutrophils % 74.6 %; Nucleated Red Blood Cells % 0 %; Platelet Count 249 10^3/cmm (130-400); Red Blood Count 5.25 10^6/uL (4.1-5.3); Red Cell Distribution Width 13.1 % (12.1-15.1)
[2019-12-16 15:31] LABS: Alanine Aminotransferase 19 U/L (0-41); Alkaline Phosphatase 81 IU/L (40-130); Anion Gap 16.2 (5-19); Aspartate Amino Transferase 23 U/L (0-40); Blood Urea Nitrogen 12 mg/dL (6-20); Calcium 9.6 mg/dL (8.5-10.5); Carbon Dioxide 23 mmol/L (22-29); Chloride 102 mmol/L (98-107); Glomerular Filtration Rate 87.3 mL/min (90-130); Glucose 104 mg/dL (65-115); Osmolality Calculated 284 mOsm/kg (285-295); Potassium 4.2 mmol/L (3.5-5.1); Sodium 137 mmol/L (136-145); Thyroid Stimulating Hormone 0.54 uIU/mL (0.27-4.20); Total Bilirubin 0.4 mg/dL (0.15-1.2)
[2019-12-16 16:34] LABS: Estmated Average Glucose 123; Hemoglobin A1C 5.9 % (4.0-6.0)
== END 2019-12-16 14:29 | disposition home or self-care (01) ==
PROVIDERS: PCP Nurse Practitioner Family; Visit Provider Surgery
DX: K57.90 Diverticulosis of intestine, part unspecified, without perforation or abscess without bleeding (principal)
CPT/HCPCS: 80053; 83036; 84443; 85025

== ENCOUNTER → 2024-10-27 14:25 | Outpatient (BNVA) | payer MEDICARE, SELFPAY | PROVIDERS: PCP Nurse Practitioner Family; Visit Provider Nurse Practitioner Family | DX: I10 Essential (primary) hypertension (principal); M10.9 Gout, unspecified; R53.83 Other fatigue | CPT/HCPCS: 80053; 80061; 84550; 85025 ==

== ENCOUNTER → 2024-12-03 10:40 | Outpatient (BNVA) | payer MEDICARE, SELFPAY | PROVIDERS: PCP Nurse Practitioner Family; Visit Provider Nurse Practitioner Family | DX: I10 Essential (primary) hypertension (principal); M25.50 Pain in unspecified joint; R53.83 Other fatigue | CPT/HCPCS: 80053; 80061; 83880; 84443; 85025; 86038; 86431 ==

== ENCOUNTER → 2024-12-25 10:00 | Outpatient (BNVA) | payer MEDICARE, SELFPAY | PROVIDERS: PCP Nurse Practitioner Family; Visit Provider Nurse Practitioner Family | DX: M10.9 Gout, unspecified (principal) | CPT/HCPCS: 84550 ==